=== PATIENT | female | born 1955 | race Caucasian/White ===

== ENCOUNTER 2018-03-19 17:36 | Emergency (ER) | payer OTHER ==
[~2018-03-19] VITALS: Ht 182.9 cm; Wt 97.5 kg
[2018-03-19 17:42] VITALS: BP_SYST 120
[2018-03-19 19:03] VITALS: BP_SYST 118
== END 2018-03-19 18:59 | disposition home or self-care (01) ==
LOC: SED 17:36
DX: G89.29 Other chronic pain (principal); M25.562 Pain in left knee; Z76.0 Encounter for issue of repeat prescription
CPT/HCPCS: 99283